=== PATIENT | male | born 1985 ===

== ENCOUNTER → 2021-11-22 10:56 | Outpatient (POV) | payer BC, SELFPAY ==
[2021-11-22 11:18] VITALS: BP 163/98; PULSE 96; RESP 20; TEMP 37.1; O2SAT 100; BMI 31.5
--- NOTE | 2021-11-22 12:37 | [facility].PMCON ---
Assessment and Plan (1) Ankylosing spondylitis Status: Chronic Category: Medical Code(s): M45.9 - Ankylosing spondylitis of unspecified sites in spine (2) Bilateral sacroiliitis Status: Chronic Category: Medical Code(s): M46.1 - Sacroiliitis, not elsewhere classified (3) Lumbar radicular pain Status: Chronic Category: Medical Code(s): M54.16 - Radiculopathy, lumbar region - Assessment and plan all Dx Assessment and Plan for all problems:: This patient is a 36-year-old white male that comes to our clinic today for initial evaluation regarding chronic low back pain, chronic bilateral hip and leg radicular symptoms. Patient has had a prior diagnosis of ankylosing spondylitis. He has been to 3 previous pain management clinics prior to his arrival today. Patient had a specific reason why he no longer is at either of those clinics. This ranged from had car trouble. Did not get along with the physician. He currently has a prescription for hydrocodone 10 mg 1 p.o. 3 times daily from primary care midlevel at [facility]. According to the patient he has been on some type of narcotic for several years from different prescribers. The patient has had some lumbar injections with minimal relief. This was to include lumbar facet blocks. Bilateral sacral iliac joint injections. None of these injections seem to give the patient any kind of significant relief. Patient has a current appointment scheduled for December 03, 2021 with orthopedic surgery regarding a chronic hip pain. This will be a [facility]. My suggestion to the patient and his was for him to complete the appointment with the orthopedic surgeon at [facility]. Return to our clinic on a day Dr. Rivas is here for consultation regarding narcotic therapy. I was very clear with the patient regarding narcotic therapy from our clinic. Specifically, we have very few patients that we write chronic narcotics for. His Nestor today of [id number] was reviewed. Upon examination the patient has some extreme point tenderness over the lumbar spine. His gait is somewhat antalgic however I did observe him ambulating in the clinic. He did not seem to be unsteady. The motion of getting up out of a chair was normal. HPI - Data of Consult Patient: new to practice Consult date: 11/22/21 Requesting Physician: Elian Castro CRNA - Consult Narrative Reason for consult: Chronic pain. Lumbar back pain. Bilateral hip and leg radicular symptoms. History of present illness: Mr. Gonzalez is a 36 year old male CC: Elian Castro CRNA [facility] History I have reviewed the patient's past medical history: Yes *Have you ever received a pneumonia vaccine?: No *Have you received a flu vaccine this season?: No - *Social History Smoking Status: Unknown if ever smoked Alcohol Intake: never *Occupational Status:: disabled *Travel in the last 8 weeks: None Family Hx:: Unable to obtain Review of Systems - Review of Systems Review of systems:: pertinent systems reviewed and negative unless documented below Meds Home Medications Medication Instructions Recorded Confirmed Type Adalimumab [Humira(Cf) Pen] 40 mg IM WEEKLY 11/22/21 11/22/21 History Ibuprofen 800 mg PO BID 11/22/21 11/22/21 History Quetiapine Fumarate 100 mg PO HS 11/22/21 11/22/21 History Trazodone HCl 50 mg PO HS 11/22/21 11/22/21 History Objective Vital signs: Temp Pulse Resp BP Pulse Ox 98.7 F 96 H 20 163/98 H 100 11/22/21 11:18 11/22/21 11:18 11/22/21 11:18 11/22/21 11:18 11/22/21 11:18 Opioid Risk Tool - Opioid Risk Tool-Male Family hx alcohol abuse: N Family hx illegal drugs: N Family hx rx drug abuse: N Personal hx alcohol abuse: N Personal hx illegal drugs: N Personal hx rx drug abuse: N Age: 16-45 Hx of sexual abuse: N Mental health issues-ADD,OCD,Bipolar, etc: N Hx of depression: Y Male Risk Score: 2
== END ==
PROVIDERS: Visit Provider Nurse Anesthetist, Certified Registered
DX: M45.9 Ankylosing spondylitis of unspecified sites in spine (principal); M46.1 Sacroiliitis, not elsewhere classified; M54.16 Radiculopathy, lumbar region
CPT/HCPCS: 99202; G0463